=== PATIENT | male | born 1980 | race Caucasian/White ===

== ENCOUNTER 2022-07-11 11:34 | Emergency (ER) | payer SELFPAY ==
--- NOTE | 2022-07-11 13:22 | ER ---
Nurse's Notes [facility] Name: Suraj Jones Jr Age: 41 yrs Sex: Male : 1980 Arrival Date: 07/11/2022 Time: 11:52 Bed 23 Private MD: Diagnosis: Esophageal impaction, AMA Presentation: 07/11 13:06 Chief complaint: Patient states: Piece of steak stuck in throat since around 9 pm last ph night, states that this has happened before but he is usually able to drink water to help food pass, states that he is unable to drink water or swallow saliva this time. Coronavirus screen: Vaccine status: Patient reports receiving the 2nd dose of the covid vaccine. Ebola Screen: No symptoms or risks identified at this time. Initial Sepsis Screen: Does the patient meet any 2 criteria? No. Patient's initial sepsis screen is negative. Does the patient have a suspected source of infection? No. Patient's initial sepsis screen is negative. Risk Assessment: Do you want to hurt yourself or someone else? Patient reports no desire to harm self or others. Onset of symptoms was July 11, 2022. 13:06 Method Of Arrival: Ambulatory ph 13:06 Acuity: ARIELA 3 ph Triage Assessment: 13:29 General: Appears in no apparent distress. uncomfortable, Behavior is calm, cooperative, eh3 appropriate for age. Pain: Denies pain. Historical: - Allergies: 13:09 No Known Allergies; ph - PMHx: 13:09 Hypertensive disorder; anxiety; ph - PSHx: 13:09 hernia repair; ph - Immunization history:: Adult Immunizations up to date. - Social history:: Smoking status: Reported history of juuling and/or vaping. Screenin:29 [facility] ED Fall Risk Assessment (Adult) Score/Fall Risk Level 0 - 2 = Low Risk. Abuse eh3 screen: Denies threats or abuse. Denies injuries from another. Nutritional screening: Difficulty chewing/swallowing? Yes. Tuberculosis screening: No symptoms or risk factors identified. Vital Signs: 13:06 BP 160 / 106; Pulse 94; Resp 18; Temp 97.9; Pulse Ox 99% on R/A; Weight 99.79 kg; ph Height 6 ft. 1 in. (185.42 cm); 13:06 Body Mass Index 29.03 (99.79 kg, 185.42 cm) ED Course: 11:52 Patient arrived in ED. rg4 12:39 Blaise Morocho MD is Attending Physician. sp3 13:09 Triage completed. ph 13:10 Arm band placed on Patient placed in an exam room. ph 13:28 Vilma Schmitz, RN is Primary Nurse. 3 13:29 Patient has correct armband on for positive identification. eh3 13:29 No provider procedures requiring assistance completed. Patient did not have IV access eh3 during this emergency room visit. Administered Medications: No medications were administered Medication: 13:29 VIS not applicable for this client. eh3 Outcome: 13:29 AMA AMA form signed eh3 13:29 Condition: stable 13:29 Discharge instructions given to patient, Instructed on the need for transfer, Demonstrated understanding of instructions. 13:30 Patient left the ED. 3 Signatures: Kristi Schmitz, RN RN Paula Shea rg4 Blaise Morocho MD MD sp3 Vilma Schmitz, RN RN [facility]
--- NOTE | 2022-07-11 13:22 | EDPHYS ---
Physician Documentation [facility] Name: Suraj Jones Jr Age: 41 yrs Sex: Male : 1980 Arrival Date: 07/11/2022 Time: 11:52 Bed 23 Private MD: ED Physician Blaise Morocho HPI: 07/11 13:23 This 41 yrs old Male presents to ER via Ambulatory with complaints of Food Stuck In sp3 Throat. 13:23 41-year-old male with history of hypertension and anxiety presents to the ED with chief sp3 complaint "food stuck in throat" since approximately 9:30 PM yesterday. He states that he cannot tolerate his saliva and swallow his spit and once an hour has to regurgitate it out. Normally it self resolves when this happens but this episode has not. Therefore he presents to the ED for evaluation and resolution. No other symptoms rating fever, headache, neck pain, chest pain, shortness of breath, back pain, abdominal pain, nausea, vomiting, diarrhea, or any other symptoms on ROS at this time.. Historical: - Allergies: 13:09 No Known Allergies; ph - PMHx: 13:09 Hypertensive disorder; anxiety; ph - PSHx: 13:09 hernia repair; ph - Immunization history:: Adult Immunizations up to date. - Social history:: Smoking status: Reported history of juuling and/or vaping. ROS: 13:25 Constitutional: Negative for fever, chills, and weight loss, Eyes: Negative for injury, sp3 pain, redness, and discharge, Neck: Negative for injury, pain, and swelling, Cardiovascular: Negative for chest pain, palpitations, and edema, Respiratory: Negative for shortness of breath, cough, wheezing, and pleuritic chest pain, Back: Negative for injury and pain, MS/Extremity: Negative for injury and deformity, Skin: Negative for injury, rash, and discoloration, Neuro: Negative for headache, weakness, numbness, tingling, and seizure. 13:25 All other systems are negative. Exam: 13:25 Constitutional: This is a well developed, well nourished patient who is awake, alert, sp3 and in no acute distress. Head/Face: Normocephalic, atraumatic. Eyes: Pupils equal round and reactive to light, extra-ocular motions intact. Lids and lashes normal. Conjunctiva and sclera are non-icteric and not injected. Cornea within normal limits. Periorbital areas with no swelling, redness, or edema. ENT: Nares patent. No nasal discharge, no septal abnormalities noted. External auditory canals are clear. Oropharynx with no redness, swelling, or masses, exudates, or evidence of obstruction, uvula midline. Mucous membranes moist. Neck: Trachea midline, no thyromegaly or masses palpated, and no cervical lymphadenopathy. Supple, full range of motion without nuchal rigidity, or vertebral point tenderness. No Meningismus. Chest/axilla: Normal chest wall appearance and motion. Nontender with no deformity. No lesions are appreciated. Cardiovascular: Regular rate and rhythm with a normal S1 and S2. No gallops, murmurs, or rubs. Normal PMI, no JVD. No pulse deficits. Respiratory: Lungs have equal breath sounds bilaterally, clear to auscultation and percussion. No rales, rhonchi or wheezes noted. No increased work of breathing, no retractions or nasal flaring. Abdomen/GI: Soft, non-tender, with normal bowel sounds. No distension or tympany. No guarding or rebound. No evidence of tenderness throughout. Skin: Warm, dry with normal turgor. Normal color with no rashes, no lesions, and no evidence of cellulitis. Vital Signs: 13:06 BP 160 / 106; Pulse 94; Resp 18; Temp 97.9; Pulse Ox 99% on R/A; Weight 99.79 kg; ph Height 6 ft. 1 in. (185.42 cm); 13:06 Body Mass Index 29.03 (99.79 kg, 185.42 cm) ph MDM: 13:21 Patient medically screened. sp3 13:25 Data reviewed: vital signs, nurses notes. ED course: Had extensive discussion with sp3 patient regarding need for gastroenterology and transfer for such services. Patient elects to drive himself to a different hospital for services and therefore will be discharged AMA. He is able to tolerate his airway, has normal vital signs, is ambulatory, and in absolutely no acute distress whatsoever. He did drive himself here and states that he is perfectly able to drive himself to his second hospital. He was grateful for the offer but still elects to leave.. 07/11 12:39 Order name: NPO; Complete Time: 13:11 sp3 Administered Medications: No medications were administered Disposition Summary: 07/11/22 13:22 Left Against Medical Advice Location: Home sp3 Problem: an acute exacerbation sp3 Symptoms: are unchanged sp3 Condition: Stable sp3 Diagnosis - Esophageal impaction, AMA sp3 Followup: sp3 - With: Emergency Department - When: Upon discharge from the Emergency Department - Reason: Signatures: Kristi Schmitz RN RN Blaise Morocho MD MD sp3 Vilma Schmitz RN RN eh3
[2022-07-11 13:37] VITALS: BP 160/106; TEMP 97.9; O2SAT 99
== END 2022-07-11 13:30 | disposition left against medical advice (07) ==
LOC: ER 11:34
DX: K22.2 Esophageal obstruction (principal)
CPT/HCPCS: 99281